=== PATIENT | male | born 1980 | race Caucasian/White ===

== ENCOUNTER 2024-06-09 09:45 | Emergency (ER) | payer SELFPAY ==
[~2024-06-09] VITALS: Ht 182.9 cm; Wt 136.1 kg
[~2024-06-09 09:45] MED LIST: IBUP-1955 PO; SULF1TAB48 PO
[2024-06-09] MEDS ORDERED: KETOROLAC TROMETHAMINE INJ 30 MG/ML VIAL ONE (10:11)
[2024-06-09] MEDS ORDERED: CLINDAMYCIN HCL 150 MG CAPSULE ONE (10:11)
[2024-06-09] MEDS ORDERED: dexaMETHasone SOD PHOSPHATE 1 ML ONE (10:11)
[2024-06-09] MEDS: dexaMETHasone SOD PHOSPHATE 4 MG/ML VIAL IM ONE (10:20)
[2024-06-09] MEDS: KETOROLAC TROMETHAMINE INJ 30 MG/ML VIAL IM ONE (10:20)
[2024-06-09] MEDS: CLINDAMYCIN HCL 150 MG CAPSULE PO ONE (10:21)
[2024-06-09] MEDS ORDERED: CLIN300C12 PO (10:22)
[2024-06-09 10:39] VITALS: BP 154/89; TEMP 98; O2SAT 97
== END 2024-06-09 10:39 | disposition home or self-care (01) ==
LOC: ER 09:45
DX: J02.9 Acute pharyngitis, unspecified (principal); Z88.0 Allergy status to penicillin
CPT/HCPCS: 99284; 96372; J1885; J1100